=== PATIENT | female | born 1970 ===

== ENCOUNTER 2024-08-06 06:42 | Day surgery (SDC) | payer OTHER ==
[2024-08-04 11:03] VITALS: BP 117/81
[~2024-08-06] VITALS: Ht 149.9 cm; Wt 51.3 kg
[2024-08-06] MEDS ORDERED: CEFAZOLIN SODIUM 1,000 MG VIAL ONE (11:59)
[2024-08-06] MEDS ORDERED: ONDANSETRON HCL 2 MG/ML VIAL ONE (19:51)
[2024-08-06] MEDS ORDERED: ONDANSETRON HCL 2 MG/ML VIAL IV ONE (19:55)
[2024-08-06 22:59] VITALS: BP 100/63; O2SAT 100
== END 2024-08-06 20:40 | disposition home or self-care (01) ==
LOC: CIR.AMB 06:42
PROVIDERS: ATTEND Surgery
DX: D05.11 Intraductal carcinoma in situ of right breast (principal); D48.61 Neoplasm of uncertain behavior of right breast